=== PATIENT | female | born 1970 | race Two or more races ===

== ENCOUNTER 2017-07-19 20:54 | Emergency (ER) | payer OTHER ==
[~2017-07-19] VITALS: Ht 157.5 cm; Wt 64.0 kg
--- NOTE | 2017-07-19 22:05 | NUR ---
PT AMBULATED TO THE BATHROOM WITH MINIMAL ASSISTANCE. URINE SAMPLE OBATINED.
--- NOTE | 2017-07-19 22:10 | NUR ---
DR. CASTILLO IS AT THE BEDSIDE WITH THE PT AND HER DAUGHTER. PT IS GREEK SPEAKING.
[2017-07-19] MEDS ORDERED: ASPIRIN 81 MG TAB.CHEW PO ONE (22:30)
[2017-07-19] MEDS ORDERED: FAMOTIDINE/PF INJ 20 MG/2 ML VIAL IV ONE ×2 (22:30→23:09)
[2017-07-19] MEDS ORDERED: METOCLOPRAMIDE HCL 10 MG/2 ML VIAL IV ONE (22:30)
--- NOTE | 2017-07-19 22:38 | NUR ---
CXR IN PROGRESS
--- NOTE | 2017-07-19 22:38 | NUR ---
BLOOD DRAWN AND IV STARTED.
--- NOTE | 2017-07-19 22:50 | NUR ---
PT'S DAUGHTER STATED THAT THE PT WOULD LIKE TO LEAVE. LEAVING AGAINST DR'S ADVICE WAS EXPLAINED BY ME TO THE PT AND HER DAUGHTER. DR. CASTILLO WAS NOTIFIED. AMA FORM GIVEN TO PT.
--- NOTE | 2017-07-19 23:00 | NUR ---
PT AND HER DAUGHTER WOULD LIKE SOME TIME TO DISCUSS AMA.
[2017-07-19 23:03] LABS: BASOPHILS # (AUTO) 0.1 /CMM (0.0-0.2); BASOPHILS % (AUTO) 0.7 % (0.0-2.0); EOSINOPHILS # (AUTO) 0.2 /CMM (0.0-0.7); EOSINOPHILS % (AUTO) 1.5 % (0.0-6.0); HEMATOCRIT 39 % (33-45); HEMOGLOBIN 12.6 g/dL (11.5-14.8); LYMPHOCYTES # (AUTO) 2.6 /CMM (0.8-4.8); LYMPHOCYTES % (AUTO) 21.4 % (20.0-44.0); MEAN CORPUSCULAR HEMOGLOBIN 26 PG (26.0-33.0); MEAN CORPUSCULAR HGB CONC 32 g/dl (31.0-36.0); MEAN CORPUSCULAR VOLUME 79 fL (82-100); MONOCYTES # (AUTO) 0.5 /CMM (0.1-1.30); MONOCYTES % (AUTO) 3.7 % (2.0-12.0); NEUTROPHILS # (AUTO) 8.9 /CMM (1.8-8.9); NEUTROPHILS % (AUTO) 72.7 % (43.0-81.0); PLATELET COUNT (AUTO) 182 /CMM (150-450); PROTHROMBIN TIME 10.4 SECS (9.5-12.7); RDW COEFFICIENT OF VARIATION 14.4 (11.5-15.0); RED BLOOD CELL COUNT(AUTO) 4.96 MIL/uL (4.0-5.2); WHITE BLOOD COUNT (AUTO) 12.3 K/uL (4.3-11.0)
[2017-07-19 23:04] LABS: CALCIUM, SERUM 9.7 mg/dL (8.5-10.1); CARBON DIOXIDE 22 mmol/L (21-32); CHLORIDE 107 mmol/L (98-107); CREATININE 1.1 mg/dL (0.6-1.3); GLUCOSE 192 mg/dL (74-106); POTASSIUM 4.4 mmol/L (3.5-5.1); SODIUM SERUM 142 mmol/L (136-145); UREA NITROGEN, BLOOD 14 mg/dL (7-18)
[2017-07-19 23:07] LABS: TROPONIN I < 0.017 ng/mL (0.00-0.056)
[2017-07-19 23:09] LABS: ALANINE AMINOTRANSFERASE 25 U/L (12-78); ALKALINE PHOSPHATASE 75 U/L (46-116); ASPARTATE AMINOTRANSFERASE 24 U/L (15-37); BILIRUBIN,DIRECT 0.1 mg/dL (0.0-0.2); BILIRUBIN,TOTAL 0.3 mg/dL (0.2-1.0); LIPASE 342 U/L (73-393)
[2017-07-19] MEDS ORDERED: ASPIRIN 81 MG TAB.CHEW ONE (23:09)
[2017-07-19] MEDS ORDERED: METOCLOPRAMIDE HCL 10 MG/2 ML VIAL ONE (23:09)
--- NOTE | 2017-07-19 23:11 | NUR ---
PT DECIDED TO STAY. DR. CASTILLO NOTIFIED.
--- NOTE | 2017-07-19 23:19 | NUR ---
PT'S SON IS AT THE BEDSIDE.
[2017-07-19] MEDS ORDERED: MAG HYDROX/AL HYDROX/SIMETH 30 ML UDC ONE (23:53)
[2017-07-19] MEDS ORDERED: LIDOCAINE VISCOUS 2% UD 15 ML UDC ONE (23:53)
--- NOTE | 2017-07-19 23:53 | NUR ---
VERBAL ORDER FROM DR. CASTILLO MAALOX AND VISCOUS LIDOCAINE PO.
--- NOTE | 2017-07-20 00:03 | NUR ---
PT APPEARS TO BE FEELING BETTER. VSS.
--- NOTE | 2017-07-20 00:14 | NUR ---
IV removed. Catheter intact and site benign. Pressure and 4x4 applied to site. No bleeding noted.Patient discharged to home in stable condition. Written and verbal after care instructions given. Patient verbalizes understanding of instruction. PT AMBULATED OUT OF THE ROOM TO A WHEELCHAIR. PT WAS THEN TAKEN TO THE CAR. VSS.
[2017-07-20 00:15] VITALS: BP 138/91
== END 2017-07-20 00:16 | disposition home or self-care (01) ==
LOC: ER 20:56
DX: G89.29 Other chronic pain (principal); K21.9 Gastro-esophageal reflux disease without esophagitis; B19.20 Unspecified viral hepatitis C without hepatic coma; E11.9 Type 2 diabetes mellitus without complications; I10 Essential (primary) hypertension
CPT/HCPCS: 36415; 71010; 80048; 80076; 82962; 83690; 84484; 85025; 85730; 93005; 96374; 96375; 99285; A4606; J2765; J3490; Z7610